=== PATIENT | female | born 2000 | race Caucasian/White ===

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

== ENCOUNTER 2021-01-21 11:47 | Emergency (ER) | payer MEDICAID ==
[2021-01-21 12:07] VITALS: BP 124/73; PULSE 83
[2021-01-21] MEDS ORDERED: Metoclopramide 10 MG Tab PO ONE (12:11)
--- NOTE | 2021-01-21 12:23 | EDM.PDOC ---
ED HPI GENERAL MEDICAL PROBLEM - General Chief Complaint: Gastrointestinal Problem Stated Complaint: VOMITTING/9 WEEKS PREG. Time Seen by Provider: 01/21/21 12:00 Source of Information: Reports: Patient History Limitations: Reports: No Limitations - History of Present Illness INITIAL COMMENTS - FREE TEXT/NARRATIVE: 20-year-old female, currently 9 weeks gestation with her third has had a lot of nausea and vomiting over the past 3 days. No significant diarrhea, no fevers or chills, some mild abdominal cramping but no significant pain. She is already on Zofran and vitamin B for nausea, she has tried that over the last 48 hours and its "not working". She has not taken any medication today however and has not vomited today and it is now 12 noon. Vitals are stable. Apparently she did not have this much nausea and vomiting with her previous pregnancies. Onset: Unknown/Unsure Duration: Day(s): (Symptoms have been going on for at least 3 days) Associated Symptoms: Reports: Loss of Appetite, Malaise. 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 Denies: Fever, Chills Respiratory: Denies: Shortness of Breath Cardiovascular: Denies: Chest Pain GI/Abdominal: Reports: Abdominal Pain (Mild abdominal cramps), Nausea, Vomiting. Denies: Diarrhea Skin: Reports: No Symptoms Neurological: Reports: Dizziness. Denies: Headache Psychiatric: Reports: No Symptoms ED EXAM - Physical Exam Exam: See Below Exam Limited By: No Limitations General Appearance: Alert, No Apparent Distress Eye Exam: Bilateral Eye: Normal Inspection (Good hydration, no jaundice.) Head: Atraumatic Respiratory/Chest: No Respiratory Distress, Lungs Clear Cardiovascular: Regular Rate, Rhythm. No: Tachycardia GI/Abdominal Exam: Normal Bowel Sounds, Soft, Tender (Mild discomfort with palpation diffusely but no focal tenderness) Extremities: Normal Inspection Neurological: Alert, Oriented Psychiatric: Normal Affect, Normal Mood Skin Exam: Warm, Dry Course - Vital Signs Last Recorded V/S: Last Vital Signs Temp 97.3 F 01/21/21 12:06 Pulse 83 01/21/21 12:06 Resp 14 01/21/21 12:06 BP 124/73 01/21/21 12:06 Pulse Ox 99 01/21/21 12:06 - Orders/Labs/Meds Labs: Laboratory Tests 01/21/21 01/21/21 Range/Units 12:22 12:22 WBC 10.1 (4.5-11.0) K/uL RBC 4.70 (3.30-5.50) M/uL Hgb 14.0 (12.0-15.0) g/dL Hct 42.0 (36.0-48.0) % MCV 89 (80-98) fL MCH 30 (27-31) pg MCHC 33 (32-36) % Plt Count 254 (150-400) K/uL Neut % (Auto) 80 H (36-66) % Lymph % (Auto) 13 L (24-44) % [place] % (Auto) 7 H (2-6) % Eos % (Auto) 1 L (2-4) % Baso % (Auto) 0 (0-1) % Sodium 144 (140-148) mmol/L Potassium 4.0 (3.6-5.2) mmol/L Chloride 103 (100-108) mmol/L Carbon Dioxide 23 (21-32) mmol/L Anion Gap 18.4 H (5.0-14.0) mmol/L BUN 9 (7-18) mg/dL Creatinine 0.6 (0.6-1.0) mg/dL Est Cr Clr Drug Dosing 107.43 mL/min Estimated GFR (MDRD) > 60 (>60) Glucose 73 L (74-106) mg/dL Calcium 9.3 (8.5-10.1) mg/dL Meds: Medications Discontinued Medications Generic Name Dose Route Start Last Admin Trade Name Airam PRN Reason Stop Dose Admin Metoclopramide HCl 10 mg 01/21/21 12:11 01/21/21 12:30 Metoclopramide 10 Mg Tab PO 01/21/21 12:12 10 mg ONETIME ONE Administration - Re-Assessments/Exams Free Text/Narrative Re-Assessment/Exam: 01/21/21 13:14 Patient took 1 10 mg Reglan dose and had no emesis or significant symptoms for the next hour. She was given a prescription for 12 additional doses to take 1 up to twice daily, and can recheck with her primary provider in the next week to discuss the effect of the medication. She can also continue Zofran as needed, and should concentrate on staying hydrated. Otherwise recheck on the as scheduled for her ultrasound. 01/21/21 14:46 I did try to find heart tones with the Doppler but was unsuccessful, she will follow up with her ultrasound appointment on the as scheduled as long as she is not developing any other symptoms Departure - Departure Time of Disposition: 13:23 Disposition: Home, Self-Care 01 Clinical Impression: Nausea and vomiting during - Discharge Information Instructions: Nausea and Vomiting, Adult Referrals: Karen Mckeon CNM [Primary Care Provider] - Forms: ED Department Discharge Care Plan Goals: Focus on staying hydrated with frequent but small amounts of water or fluid, use Reglan up to twice daily to quiet down your nausea and vomiting and you can continue using Zofran as well if needed. Call your regular doctor this week if not improving satisfactorily, or return to the emergency room if worsening or concerns. Sepsis Event Note (ED) - Evaluation Sepsis Screening Result: No Definite Risk - Focused Exam Vital Signs: Vital Signs Temp Pulse Resp BP Pulse Ox 01/21/21 12:06 97.3 F 83 14 124/73 99
== END 2021-01-21 13:23 | disposition home or self-care (01) ==
LOC: JP.ED 11:47
DX: O21.9 Vomiting of pregnancy, unspecified (principal); Z3A.09 9 weeks gestation of pregnancy
CPT/HCPCS: 36415; 80048; 85025; 99284; A9270; 99283

== ENCOUNTER 2021-08-26 07:32 | Inpatient (IN) | payer MEDICAID ==
[2021-08-26] MEDS ORDERED: Sodium Chloride 0.9% 10 ML Syringe FLUSH PRN ×2 (08:42→09:37)
--- NOTE | 2021-08-26 08:50 | PCM.LDHP ---
L&D History of Present Illness - General Date of Service: 08/26/21 (labor at term) Admit Problem/Dx: Patient Status Order with Admit Dx/Problem 08/26/21 08:42 Patient Status [ADT] Routine Admission Diagnosis/Problem Admission Diagnosis/Problem Source of Information: Patient History Limitations: Reports: No Limitations - History of Present Illness Introduction:: This 21 year old presented this morning with contractions which started at 0530 am. She woke up went to the bathroom and contractions started right after. I saw her yesterday in the clinic and stripped her membranes she was 3/90/0. RN tell me she is 5 cm this morning. Has had adequate care. reactive NST this morning with baseline FHT 150 with moderate variability Labs: GBS neg ABO O pos Rubella immune HIV neg Timing/Duration: Reports: minutes: (2) Location, : Reports: Abdomen Quality: Reports: Pressure, Sharp Severity: Severe Improves with: Reports: None Worsens with: Reports: None - Related Data Allergies/Adverse Reactions: Allergies Allergy/AdvReac Type Severity Reaction Status Date / Time No Known Allergies Allergy Verified 01/21/21 11:58 Home Medications: Home Meds Vit 40/Iron/Folic/Dha [ Multivitamin-Dha Sfgl] 1 tab PO DAILY 01/21/21 [History] Past Medical History - Past Health History Medical/Surgical History: Denies 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 (Approximate): (JANIE 08/30/21) - Past Surgical History Head Surgeries/Procedures: Reports: None Dermatological Surgical History: Reports: None Social & Family History - Family History Family Medical History: No Pertinent Family History - Caffeine Use Caffeine Use: Reports: None Other Caffeine Use: rarely pop and coffee H&P Review of Systems - Review of Systems: Review Of Systems: See Below General: Reports: No Symptoms HEENT: Reports: No Symptoms Pulmonary: Reports: No Symptoms Cardiovascular: Reports: No Symptoms Gastrointestinal: Reports: No Symptoms Genitourinary: Reports: No Symptoms Musculoskeletal: Reports: No Symptoms Skin: Reports: No Symptoms Psychiatric: Reports: No Symptoms Neurological: Reports: No Symptoms Hematologic/Lymphatic: Reports: No Symptoms Immunologic: Reports: No Symptoms L&D Exam - Exam Exam: See Below - Vital Signs Vital Signs: Last Vital Signs Temp Pulse 102 H 08/26/21 08:33 Resp BP 128/84 08/26/21 07:49 Pulse Ox 97 08/26/21 08:33 Weight: 160 lb - OB Specific Contraction Duration (sec): 60-90 Contraction Frequency (min): 2-4 Contraction Intensity: Moderate to Strong Movement: Active Heart Tones: Present Heart Rate (FHR) Variability: Moderate (6-25 bpm) Presentation: Vertex Estimated Weight: 6 pounds - Gonsalez Score Gonsalez Score Cervix Position: Anterior Gonsalez Score Consistency: Soft Gonsalez Score Effacement: >80% Gonsalez Score Dilation: > 5 cm Gonsalez Score Infant's Station: -1 ,0 Gonsalez Score Total: 12 - Exam General: Alert, Oriented HEENT: PERRLA, Mucosa Moist & [place] Neck: Supple Lungs: Normal Respiratory Effort Cardiovascular: Regular Rate, Regular Rhythm GI/Abdominal Exam: Normal Bowel Sounds Genitourinary: Cervical dilitation, Enlarged uterus Back Exam: Full Range of Motion Extremities: No Pedal Edema, Normal Capillary Refill Skin: Warm Neurological: Cranial Nerves Intact Psychiatric: Alert, Normal Affect, Normal Mood - Patient Data Lab Results Last 24 hrs: Laboratory Results - last 24 hr 08/26/21 08/26/21 Range/Units 07:47 08:20 WBC 13.9 H (4.5-11.0) K/uL RBC 4.40 (3.30-5.50) M/uL Hgb 13.1 (12.0-15.0) g/dL Hct 39.4 (36.0-48.0) % MCV 90 (80-98) fL MCH 30 (27-31) pg MCHC 33 (32-36) % Plt Count 197 (150-400) K/uL Neut % (Auto) 76.5 H (36-66) % Lymph % (Auto) 13.7 L (24-44) % [place] % (Auto) 8.8 H (2-6) % Eos % (Auto) 0.8 L (2-4) % Baso % (Auto) 0.2 (0-1) % Urine Color Yellow (YELLOW) Urine Appearance Clear (CLEAR) Urine pH 7.0 (5.0-8.0) Ur Specific [place] 1.025 (1.008-1.030) Urine Protein Negative (NEGATIVE) mg/dL Urine Glucose (UA) Negative (NEGATIVE) mg/dL Urine Ketones Negative (NEGATIVE) mg/dL Urine Occult Blood Trace-intact H (NEGATIVE) Urine Nitrite Negative (NEGATIVE) Urine Bilirubin Negative (NEGATIVE) Urine Urobilinogen 0.2 (0.2-1.0) EU/dL Ur Leukocyte Esterase Small H (NEGATIVE) Urine RBC 0-5 (0-5) Urine WBC 10-20 H (0-5) Ur Epithelial Cells Many Amorphous Sediment Not seen Urine Bacteria Rare Urine Mucus Few Result Diagrams: 08/26/21 08:20 - Problem List (1) Active labor at term SNOMED Code(s): 37936033 ICD Code: [id number] - Status: Acute Current Visit: Yes Problem List Initiated/Reviewed/Updated: Yes Orders Last 24hrs: Active Orders 24 hr Category Date Time Status Patient Status [ADT] Routine ADT 08/26/21 08:42 Ordered Antiembolic Devices [RC] .Routine Care 08/26/21 08:43 Ordered Communication Order [RC] ASDIRECTED Care 08/26/21 08:42 Ordered Heart Tones [RC] PER UNIT ROUTINE Care 08/26/21 08:42 Ordered Non Stress Test [RC] Click to Edit Care 08/26/21 08:42 Ordered Notify Provider Vital Signs [RC] PRN Care 08/26/21 08:42 Ordered Notify Provider [RC] PRN Care 08/26/21 08:42 Ordered VTE/DVT Education [RC] Click to Edit Care 08/26/21 08:43 Ordered Vital Signs [RC] PER UNIT ROUTINE Care 08/26/21 08:42 Ordered Regular Diet [DIET] Diet 08/26/21 Lunch Ordered COVID-19/FLU A+B/RSV [MOLEC] Routine Lab 08/26/21 08:31 Received DRUG SCREEN, URINE [URCHEM] Routine Lab 08/26/21 08:24 Ordered Lactated Ringers [Ringers, Lactated] 1,000 ml Med 08/26/21 10:00 Active IV ASDIRECTED Lactated Ringers [Ringers, Lactated] 1,000 ml Med 08/26/21 09:00 Active IV BOLUS Oxytocin/Normal Saline [Pitocin in NS 20 Units/1,000 ML Med 08/26/21 08:44 Ordered ] 20 unit in 1,000 ml IV ONETIME Vit with Ca/FA/Iron [ Plus Iron] Med 08/26/21 09:00 Active 1 each PO DAILY Sodium Chloride 0.9% [Saline Flush] Med 08/26/21 08:42 Ordered 10 ml FLUSH ASDIRECTED PRN DVT/VTE Prophylaxis Reflex [OM.PC] Routine Oth 08/26/21 08:42 Ordered Saline Lock Insert [OM.PC] Routine Oth 08/26/21 08:42 Ordered Resuscitation Status Routine Resus Stat 08/26/21 08:42 Ordered Medication Orders Lactated Ringer's (Ringers, Lactated) 1,000 mls @ 999 mls/hr IV BOLUS ONE Stop: 08/26/21 10:00 Lactated Ringer's (Ringers, Lactated) 1,000 mls @ 125 mls/hr IV ASDIRECTED REJI Prenat Multivit/[place]/Iron/Folic Ac ( Multivitamin With Calcium/Folic Acid/Iron Tab) 1 each PO DAILY REJI Assessment/Plan Comment:: 08/26/21 39 3/7 week IUP with active labor reactive NST Plan epidural for pain management plan for vaginal delivery
[2021-08-26] MEDS ORDERED: Lactated Ringers 1,000 ML IV ONE (09:00)
[2021-08-26 09:14] LABS: CORONAVIRUS COVID-19 NAA NEGATIVE (NEGATIVE)
[2021-08-26] MEDS ORDERED: diphenhydrAMINE 50 MG/ML SDV IVPUSH PRN ×2 (09:37)
[2021-08-26] MEDS ORDERED: Naloxone 0.4 MG/ML SDV IVPUSH PRN (09:37)
[2021-08-26] MEDS ORDERED: ePHEDrine 50 MG/ML SDV IVPUSH PRN (09:37)
[2021-08-26] MEDS ORDERED: Ropivacaine 200 MG in Premix Bag 1 BAG EPIDUR SCH (09:45)
[2021-08-26] MEDS ORDERED: Ropivacaine 100 ML ONE (09:52)
[2021-08-26] MEDS ORDERED: Lactated Ringers 1,000 ML IV SCH (10:00)
--- NOTE | 2021-08-26 10:00 | PCM.PNLD ---
Labor Progress Note - VS & Meds Vital Signs: Last Vital Signs Temp Pulse 102 H 08/26/21 08:33 Resp BP 128/84 08/26/21 07:49 Pulse Ox 97 08/26/21 08:33 Active Medications: Current Medications Diphenhydramine HCl (Diphenhydramine 50 Mg/Ml Sdv) 25 mg IVPUSH Q6H PRN PRN Reason: Itching Diphenhydramine HCl (Diphenhydramine 50 Mg/Ml Sdv) 50 mg IVPUSH Q6H PRN PRN Reason: Itching Ephedrine Sulfate (Ephedrine 50 Mg/Ml Sdv) 10 mg IVPUSH ASDIRECTED PRN PRN Reason: Hypotension Lactated Ringer's (Ringers, Lactated) 1,000 mls @ 999 mls/hr IV BOLUS ONE Stop: 08/26/21 10:00 Last Admin: 08/26/21 09:52 Dose: 999 mls/hr Documented by: Lactated Ringer's (Ringers, Lactated) 1,000 mls @ 125 mls/hr IV ASDIRECTED REJI Last Admin: 08/26/21 09:53 Dose: 125 mls/hr Documented by: Oxytocin/Sodium Chloride (Pitocin In Ns 20 Units/1,000 Ml) 20 unit in 1,000 mls @ 999 mls/hr IV ONETIME ONE; Protocol Stop: 08/26/21 10:45 Last Admin: 08/26/21 09:54 Dose: 999 mls/hr, 999 mls/hr Documented by: Ropivacaine 200 mg/ Premix 100 mls @ 0 mls/hr EPIDUR ASDIRECTED REJI Naloxone HCl (Naloxone 0.4 Mg/Ml Sdv) 0.1 mg IVPUSH ASDIRECTED PRN PRN Reason: Oversedation Prenat Multivit/Acetylene Torch Operator/Iron/Folic Ac ( Multivitamin With Calcium/Folic Acid/Iron Tab) 1 each PO DAILY REJI Sodium Chloride (Sodium Chloride 0.9% 10 Ml Syringe) 10 ml FLUSH ASDIRECTED PRN PRN Reason: Keep Vein Open Sodium Chloride (Sodium Chloride 0.9% 10 Ml Syringe) 10 ml FLUSH ASDIRECTED PRN PRN Reason: Keep Vein Open Discontinued Medications Ropivacaine (Naropin 0.2%) Confirm Administered Dose 100 mls @ as directed .ROUTE .STK-MED ONE Stop: 08/26/21 09:53 - Uterine Contractions Uterine Monitoring Mode: External Noank Contraction Frequency (min): 2-4 Contraction Duration (sec): 60-90 Contraction Intensity: Moderate to Strong Uterine Resting Tone: Soft - Monitoring Monitor Mode: External Ultrasound Heart Rate (FHR) Baseline: 140 Heart Rate (FHR) Variability: Moderate (6-25 bpm) Accelerations: Present, 15x15 Decelerations: None Strip Review: Category I - Vaginal Exam Dilation (cm): 6 Effacement (Percent): 90 Station: 0 Cervical Position: Anterior Sterile Vaginal Exam Performed By: Zoë Pablo Vaginal Exam Comment: bulging bag - Labor Progress (Free Text) Labor Progress: epidural placed Will AROM after placement of brown cath more comfortable now Plan for vaginal delivery
[2021-08-26] MEDS: Prenatal Multivitamin with Calcium/Folic Acid/Iron Tab PO SCH (10:05)
[2021-08-26] MEDS ORDERED: Lanolin 100% Cream 40 GM Tube TOP PRN (12:54)
[2021-08-26] MEDS ORDERED: Benzocaine 20% Top Spray 56 GM Bottle TOP PRN (12:54)
[2021-08-26] MEDS ORDERED: Hydrocortisone 2.5% Crm 30 GM Tube TOP PRN (12:54)
[2021-08-26] MEDS ORDERED: Ibuprofen 200 MG Tab, 24 Tab Bulk Bottle PO PRN (12:54)
[2021-08-26] MEDS ORDERED: Witch Hazel Medicated Pads 100/Jar TOP PRN (12:54)
[2021-08-26] MEDS ORDERED: Acetaminophen 325 MG Tab, 50 Tab Bulk Bottle PO PRN (12:54)
--- NOTE | 2021-08-26 13:04 | PCM.DEL ---
L & D Note - General Info Date of Service: 08/26/21 (childbirth) Mother's Due Date: 08/30/21 - Delivery Note Labor: Spontaneous Delivery Outcome: Livebirth Infant Delivery Method: Spontaneous Vaginal Delivery-Single Delivery Mode: Spontaneous Presentation: Left Occiput Posterior (LOP) Nuchal Cord: None Anesthesia Type: Epidural Amniotic Fluid Description: Clear Episiotomy Type: None Laceration: None Placenta: Intact, Spontaneous Cord: 3 Vessels Estimated Blood Loss: 100 Resuscitation Needed: No : Bulb Syringe, Stimulated, Warmed, [place] Used Provider: Zoë Pablo Score 1 min: 8 (color) Score 5 min: 9 (color) Second Stage Interventions: Reports: Second Nurse Reviewed Heart Tones, Pushing Effectively, Pushing, McRobert's Position Delivery Comments (Free Text/Narrative):: This 21 year old G3 now P3 who is 39 3/7 weeks delivered via a viable female at 1233 over and intact perineum in LOP position. The was placed on mother's chest where she was dried and stimulated. She cried spontaneously. Apgars 8 and 9 all for color. Delayed cord clamping and active management of the third stage. Three vessel cord. The placenta was expressed spontaneously intact, verito. No lacerations of the cervix, vagina, perineum or rectum were found. EBL 100cc weight 7-14 Mother and baby to post in stable condition. breast within 30 minutes of . First stage 5690-8554 Second stage 2664-2006 Third stage 6304-4070 - General Info Date of Service: 08/26/21 Admission Dx/Problem (Free Text): Patient Status Order with Admit Dx/Problem 08/26/21 08:42 Patient Status [ADT] Routine Admission Diagnosis/Problem Admission Diagnosis/Problem Functional Status: Reports: Pain Controlled - Review of Systems General: Reports: No Symptoms HEENT: Reports: No Symptoms Pulmonary: Reports: No Symptoms Cardiovascular: Reports: No Symptoms Gastrointestinal: Reports: No Symptoms Genitourinary: Reports: No Symptoms Musculoskeletal: Reports: No Symptoms Skin: Reports: No Symptoms Neurological: Reports: No Symptoms Psychiatric: Reports: No Symptoms - Patient Data Vitals - Most Recent: Last Vital Signs Temp Pulse 102 H 08/26/21 08:33 Resp BP 128/84 08/26/21 07:49 Pulse Ox 97 08/26/21 09:37 Weight - Most Recent: 165 lb Lab Results Last 24 Hours: Laboratory Results - last 24 hr 08/26/21 08/26/21 08/26/21 Range/Units 07:47 08:20 08:24 WBC 13.9 H (4.5-11.0) K/uL RBC 4.40 (3.30-5.50) M/uL Hgb 13.1 (12.0-15.0) g/dL Hct 39.4 (36.0-48.0) % MCV 90 (80-98) fL MCH 30 (27-31) pg MCHC 33 (32-36) % Plt Count 197 (150-400) K/uL Neut % (Auto) 76.5 H (36-66) % Lymph % (Auto) 13.7 L (24-44) % [place] % (Auto) 8.8 H (2-6) % Eos % (Auto) 0.8 L (2-4) % Baso % (Auto) 0.2 (0-1) % Urine Color Yellow (YELLOW) Urine Appearance Clear (CLEAR) Urine pH 7.0 (5.0-8.0) Ur Specific [place] 1.025 (1.008-1.030) Urine Protein Negative (NEGATIVE) mg/dL Urine Glucose (UA) Negative (NEGATIVE) mg/dL Urine Ketones Negative (NEGATIVE) mg/dL Urine Occult Blood Trace-intact H (NEGATIVE) Urine Nitrite Negative (NEGATIVE) Urine Bilirubin Negative (NEGATIVE) Urine Urobilinogen 0.2 (0.2-1.0) EU/dL Ur Leukocyte Esterase Small H (NEGATIVE) Urine RBC 0-5 (0-5) Urine WBC 10-20 H (0-5) Ur Epithelial Cells Many Amorphous Sediment Not seen Urine Bacteria Rare Urine Mucus Few Urine Opiates Screen Negative (NEGATIVE) Ur Oxycodone Screen Negative (NEGATIVE) Urine Methadone Screen Negative (NEGATIVE) Ur Propoxyphene Screen Negative (NEGATIVE) Ur Barbiturates Screen Negative (NEGATIVE) Ur Tricyclics Screen Negative (NEGATIVE) Ur Phencyclidine Scrn Negative (NEGATIVE) Ur Amphetamine Screen Negative (NEGATIVE) U Methamphetamines Scrn Negative (NEGATIVE) Urine MDMA Screen Negative (NEGATIVE) U Benzodiazepines Scrn Negative (NEGATIVE) U Cocaine Metab Screen Negative (NEGATIVE) U Marijuana (THC) Screen Negative (NEGATIVE) Influenza Type A RNA (NEGATIVE) RSV RNA (INAAT) (NEGATIVE) Influenza Type B RNA (NEGATIVE) SARS-CoV-2 RNA (SHREYA) (NEGATIVE) 08/26/21 Range/Units 08:31 WBC (4.5-11.0) K/uL RBC (3.30-5.50) M/uL Hgb (12.0-15.0) g/dL Hct (36.0-48.0) % MCV (80-98) fL MCH (27-31) pg MCHC (32-36) % Plt Count (150-400) K/uL Neut % (Auto) (36-66) % Lymph % (Auto) (24-44) % [place] % (Auto) (2-6) % Eos % (Auto) (2-4) % Baso % (Auto) (0-1) % Urine Color (YELLOW) Urine Appearance (CLEAR) Urine pH (5.0-8.0) Ur Specific [place] (1.008-1.030) Urine Protein (NEGATIVE) mg/dL Urine Glucose (UA) (NEGATIVE) mg/dL Urine Ketones (NEGATIVE) mg/dL Urine Occult Blood (NEGATIVE) Urine Nitrite (NEGATIVE) Urine Bilirubin (NEGATIVE) Urine Urobilinogen (0.2-1.0) EU/dL Ur Leukocyte Esterase (NEGATIVE) Urine RBC (0-5) Urine WBC (0-5) Ur Epithelial Cells Amorphous Sediment Urine Bacteria Urine Mucus Urine Opiates Screen (NEGATIVE) Ur Oxycodone Screen (NEGATIVE) Urine Methadone Screen (NEGATIVE) Ur Propoxyphene Screen (NEGATIVE) Ur Barbiturates Screen (NEGATIVE) Ur Tricyclics Screen (NEGATIVE) Ur Phencyclidine Scrn (NEGATIVE) Ur Amphetamine Screen (NEGATIVE) U Methamphetamines Scrn (NEGATIVE) Urine MDMA Screen (NEGATIVE) U Benzodiazepines Scrn (NEGATIVE) U Cocaine Metab Screen (NEGATIVE) U Marijuana (THC) Screen (NEGATIVE) Influenza Type A RNA Negative (NEGATIVE) RSV RNA (INAAT) Negative (NEGATIVE) Influenza Type B RNA Negative (NEGATIVE) SARS-CoV-2 RNA (SHREYA) Negative (NEGATIVE) Med Orders - Current: Current Medications Diphenhydramine HCl (Diphenhydramine 50 Mg/Ml Sdv) 25 mg IVPUSH Q6H PRN PRN Reason: Itching Diphenhydramine HCl (Diphenhydramine 50 Mg/Ml Sdv) 50 mg IVPUSH Q6H PRN PRN Reason: Itching Ephedrine Sulfate (Ephedrine 50 Mg/Ml Sdv) 10 mg IVPUSH ASDIRECTED PRN PRN Reason: Hypotension Last Admin: 08/26/21 10:39 Dose: 10 mg Documented by: Lactated Ringer's (Ringers, Lactated) 1,000 mls @ 125 mls/hr IV ASDIRECTED REJI Last Admin: 08/26/21 09:53 Dose: 125 mls/hr Documented by: Ropivacaine 200 mg/ Premix 100 mls @ 0 mls/hr EPIDUR ASDIRECTED REJI Naloxone HCl (Naloxone 0.4 Mg/Ml Sdv) 0.1 mg IVPUSH ASDIRECTED PRN PRN Reason: Oversedation Prenat Multivit/[place]/Iron/Folic Ac ( Multivitamin With Calcium/Folic Acid/Iron Tab) 1 each PO DAILY [facility] Last Admin: 08/26/21 10:05 Dose: 1 each Documented by: Sodium Chloride (Sodium Chloride 0.9% 10 Ml Syringe) 10 ml FLUSH ASDIRECTED PRN PRN Reason: Keep Vein Open Sodium Chloride (Sodium Chloride 0.9% 10 Ml Syringe) 10 ml FLUSH ASDIRECTED PRN PRN Reason: Keep Vein Open Discontinued Medications Lactated Ringer's (Ringers, Lactated) 1,000 mls @ 999 mls/hr IV BOLUS ONE Stop: 08/26/21 10:00 Last Admin: 08/26/21 09:52 Dose: 999 mls/hr Documented by: Oxytocin/Sodium Chloride (Pitocin In Ns 20 Units/1,000 Ml) 20 unit in 1,000 mls @ 999 mls/hr IV ONETIME ONE; Protocol Stop: 08/26/21 10:45 Last Admin: 08/26/21 09:54 Dose: 999 mls/hr, 999 mls/hr Documented by: Ropivacaine (Naropin 0.2%) Confirm Administered Dose 100 mls @ as directed .ROUTE .[facility] ONE Stop: 08/26/21 09:53 - Exam General: Alert, Oriented HEENT: Pupils Equal Neck: Supple Lungs: Normal Respiratory Effort Cardiovascular: Regular Rate GI/Abdominal Exam: Soft, Non-Tender (Female) Exam: Normal External Exam, Enlarged Uterus, Vaginal Bleeding Back Exam: Full Range of Motion Extremities: No Pedal Edema, Normal Capillary Refill Skin: Warm Neurological: No New Focal Deficit Psy/Mental Status: Alert, Normal Affect, Normal Mood - Problem List & Annotations (1) Active labor at term SNOMED Code(s): 52884923 Code(s): EOA6293 - Status: Acute Current Visit: Yes (2) (infant) SNOMED Code(s): 256641458 Code(s): Z78.9 - OTHER SPECIFIED HEALTH STATUS Status: Acute Current Visit: Yes (3) Vaginal delivery SNOMED Code(s): 627506442 Code(s): O80 - ENCOUNTER FOR FULL-TERM UNCOMPLICATED DELIVERY Status: Acute Current Visit: Yes - Problem List Review Problem List Initiated/Reviewed/Updated: Yes - My Orders Last 24 Hours: My Active Orders 08/26/21 08:42 Communication Order [RC] ASDIRECTED Non Stress Test [RC] Click to Edit Notify Provider Vital Signs [RC] PRN Notify Provider [RC] PRN Vital Signs [RC] PER UNIT ROUTINE Sodium Chloride 0.9% [Saline Flush] 10 ml FLUSH ASDIRECTED PRN DVT/VTE Prophylaxis Reflex [OM.PC] Routine Saline Lock Insert [OM.PC] Routine Resuscitation Status Routine 08/26/21 08:43 Antiembolic Devices [RC] .Routine VTE/DVT Education [RC] Click to Edit 08/26/21 09:00 Vit with Ca/FA/Iron [ Plus Iron] 1 each PO DAILY 08/26/21 09:37 Communication Order [RC] ROUTINE Communication Order [RC] ROUTINE Communication Order [RC] ROUTINE Oxygen Therapy [RC] ASDIRECTED PCEA Epidural [RC] ASDIRECTED Peripheral IV Care [RC] . DIRECTED Pulse Oximetry [RC] ASDIRECTED Vital Signs [RC] PER UNIT ROUTINE Naloxone [Narcan] 0.1 mg IVPUSH ASDIRECTED PRN Sodium Chloride 0.9% [Saline Flush] 10 ml FLUSH ASDIRECTED PRN diphenhydrAMINE [Benadryl] 25 mg IVPUSH Q6H PRN diphenhydrAMINE [Benadryl] 50 mg IVPUSH Q6H PRN ePHEDrine [ePHEDrine sulfate] 10 mg IVPUSH ASDIRECTED PRN Epidural Catheter Management [OM.PC] Routine Peripheral IV Insertion Pediatric [OM.PC] Routine 08/26/21 09:45 Ropivacaine [Naropin 0.2%] 200 mg Premix Bag 1 bag EPIDUR ASDIRECTED 08/26/21 10:00 Lactated Ringers [Ringers, Lactated] 1,000 ml IV ASDIRECTED 08/26/21 Lunch Regular Diet [DIET] 08/26/21 12:54 Patient Status [ADT] Routine May Shower [RC] ASDIRECTED Vital Signs [RC] PFP Acetaminophen [Tylenol Bulk Bottle] See Dose Instructions PO Q4H PRN Benzocaine [[id number] 20% [place]] See Dose Instructions TOP Q4H ONE Hydrocortisone [Proctozone-HC 2.5% Crm] 1 gm TOP ASDIRECTED PRN Ibuprofen [Motrin Bulk Bottle] 600 mg PO Q6H PRN Lanolin [Lansinoh HPA] 1 gm TOP ASDIRECTED ONE witch Dennis [Tucks] 1 pad TOP ASDIRECTED ONE Assess Lochia [WOMSER] Per Unit Routine 08/26/21 12:55 Peripheral IV Discontinue [OM.PC] Routine - Assessment Assessment:: 08/26/21 21 year old G3 now P3 39 3/7 weeks, without complications female infant, - Plan Plan:: 08/26/21 39 3/7 week IUP with active labor reactive NST Plan epidural for pain management plan for vaginal delivery 08/26/21 Routine cares support 24-48 hour stay
[2021-08-27 07:38] VITALS: BP 122/79; PULSE 85
--- NOTE | 2021-08-27 10:19 | PCM.PNPP ---
- General Info Date of Service: 08/27/21 (PDD 1 D/C) Admission Dx/Problem (Free Text): Patient Status Order with Admit Dx/Problem 08/26/21 08:42 Patient Status [ADT] Routine Admission Diagnosis/Problem Admission Diagnosis/Problem Functional Status: Reports: Pain Controlled - Review of Systems General: Reports: No Symptoms HEENT: Reports: No Symptoms Pulmonary: Reports: No Symptoms Cardiovascular: Reports: No Symptoms Gastrointestinal: Reports: No Symptoms Genitourinary: Reports: No Symptoms Musculoskeletal: Reports: No Symptoms Skin: Reports: No Symptoms Neurological: Reports: No Symptoms Psychiatric: Reports: No Symptoms - General Info Date of Service: 08/27/21 - Patient Data Vital Signs - Most Recent: Last Vital Signs Temp 97.8 F 08/27/21 07:35 Pulse 85 08/27/21 07:35 Resp 16 08/27/21 07:35 BP 122/79 08/27/21 07:35 Pulse Ox 97 08/27/21 07:35 Weight - Most Recent: 165 lb I&O - Last 24 Hours: Intake & Output 08/26/21 08/27/21 08/27/21 22:59 06:59 14:59 Intake Total 700 Balance 700 Med Orders - Current: Current Medications Acetaminophen (Acetaminophen 325 Mg Tab, 50 Tab Bulk Bottle) 325 - 650 mg PO Q4H PRN PRN Reason: Pain Last Admin: 08/26/21 13:56 Dose: 1 bottle Documented by: Benzocaine (Benzocaine 20% Top [place] 56 Gm Bottle) 0 gm TOP Q4H PRN PRN Reason: Pain Last Admin: 08/26/21 13:55 Dose: 1 bottle Documented by: Diphenhydramine HCl (Diphenhydramine 50 Mg/Ml Sdv) 25 mg IVPUSH Q6H PRN PRN Reason: Itching Diphenhydramine HCl (Diphenhydramine 50 Mg/Ml Sdv) 50 mg IVPUSH Q6H PRN PRN Reason: Itching Emollient Ointment (Lanolin 100% Cream 40 Gm Tube) 1 gm TOP ASDIRECTED PRN PRN Reason: SORE NIPPLES Last Admin: 08/26/21 13:54 Dose: 1 bottle Documented by: Ephedrine Sulfate (Ephedrine 50 Mg/Ml Sdv) 10 mg IVPUSH ASDIRECTED PRN PRN Reason: Hypotension Last Admin: 08/26/21 10:39 Dose: 10 mg Documented by: Hydrocortisone (Hydrocortisone 2.5% Crm 30 Gm Tube) 1 gm TOP ASDIRECTED PRN PRN Reason: Itching Last Admin: 08/26/21 13:54 Dose: 1 bottle Documented by: Lactated Ringer's (Ringers, Lactated) 1,000 mls @ 125 mls/hr IV ASDIRECTED REJI Last Admin: 08/26/21 09:53 Dose: 125 mls/hr Documented by: Ropivacaine 200 mg/ Premix 100 mls @ 0 mls/hr EPIDUR ASDIRECTED [facility] Ibuprofen (Ibuprofen 200 Mg Tab, 24 Tab Bulk Bottle) 600 mg PO Q6H PRN PRN Reason: Pain Last Admin: 08/26/21 13:55 Dose: 1 bottle Documented by: Naloxone HCl (Naloxone 0.4 Mg/Ml Sdv) 0.1 mg IVPUSH ASDIRECTED PRN PRN Reason: Oversedation Prenat Multivit/Hazard Mitigation Officer/Iron/Folic Ac ( Multivitamin With Calcium/Folic Acid/Iron Tab) 1 each PO DAILY [facility] Last Admin: 08/26/21 10:05 Dose: 1 each Documented by: Sodium Chloride (Sodium Chloride 0.9% 10 Ml Syringe) 10 ml FLUSH ASDIRECTED PRN PRN Reason: Keep Vein Open Sodium Chloride (Sodium Chloride 0.9% 10 Ml Syringe) 10 ml FLUSH ASDIRECTED PRN PRN Reason: Keep Vein Open Witch Dennis (Witch Dennis Medicated Pads 100/Jar) 1 pad TOP ASDIRECTED PRN PRN Reason: PERINEAL PAIN Last Admin: 08/26/21 13:54 Dose: 1 bottle Documented by: Discontinued Medications Lactated Ringer's (Ringers, Lactated) 1,000 mls @ 999 mls/hr IV BOLUS ONE Stop: 08/26/21 10:00 Last Admin: 08/26/21 09:52 Dose: 999 mls/hr Documented by: Oxytocin/Sodium Chloride (Pitocin In Ns 20 Units/1,000 Ml) 20 unit in 1,000 mls @ 999 mls/hr IV ONETIME ONE; Protocol Stop: 08/26/21 10:45 Last Admin: 08/26/21 09:54 Dose: 999 mls/hr, 999 mls/hr Documented by: Ropivacaine (Naropin 0.2%) Confirm Administered Dose 100 mls @ as directed .ROUTE .[facility] ONE Stop: 08/26/21 09:53 - Interaction Disposition, : in Room with Family Interaction: Holding Infant Feeding: Breastfed ; Nursed Well Support Person: Significant Other - Recovery Exam Fundal Tone: Firm Fundal Level: At Umbilicus Fundal Placement: Midline Lochia Amount: Small Lochia Color: Rubra/Red Perineum Description: Intact, Minimal Bruising/Swelling Episiotomy/Laceration: None Bladder Status: Voiding - Exam General: Alert, Oriented HEENT: Pupils Equal Neck: Supple Lungs: Clear to Auscultation, Normal Respiratory Effort Cardiovascular: Regular Rate GI/Abdominal Exam: Non-Tender Extremities: No Pedal Edema, Normal Capillary Refill Skin: Warm, Dry, Intact Wound/Incisions: Healing Well Neurological: No New Focal Deficit Psy/Mental Status: Alert, Normal Affect, Normal Mood - Problem List & Annotations (1) Active labor at term SNOMED Code(s): 81465856 Code(s): SAD4555 - Status: Acute Current Visit: Yes (2) (infant) SNOMED Code(s): 747375993 Code(s): Z78.9 - OTHER SPECIFIED HEALTH STATUS Status: Acute Current Visit: Yes (3) Vaginal delivery SNOMED Code(s): 102907359 Code(s): O80 - ENCOUNTER FOR FULL-TERM UNCOMPLICATED DELIVERY Status: Acute Current Visit: Yes - Problem List Review Problem List Initiated/Reviewed/Updated: Yes - My Orders Last 24 Hours: My Active Orders 08/26/21 09:37 Communication Order [RC] ROUTINE Communication Order [RC] ROUTINE Communication Order [RC] ROUTINE Oxygen Therapy [RC] ASDIRECTED PCEA Epidural [RC] ASDIRECTED Peripheral IV Care [RC] . DIRECTED Pulse Oximetry [RC] ASDIRECTED Naloxone [Narcan] 0.1 mg IVPUSH ASDIRECTED PRN Sodium Chloride 0.9% [Saline Flush] 10 ml FLUSH ASDIRECTED PRN diphenhydrAMINE [Benadryl] 25 mg IVPUSH Q6H PRN diphenhydrAMINE [Benadryl] 50 mg IVPUSH Q6H PRN ePHEDrine [ePHEDrine sulfate] 10 mg IVPUSH ASDIRECTED PRN Epidural Catheter Management [OM.PC] Routine Peripheral IV Insertion Pediatric [OM.PC] Routine 08/26/21 09:45 Ropivacaine [Naropin 0.2%] 200 mg Premix Bag 1 bag EPIDUR ASDIRECTED 08/26/21 10:00 Lactated Ringers [Ringers, Lactated] 1,000 ml IV ASDIRECTED 08/26/21 Lunch Regular Diet [DIET] 08/26/21 12:54 Patient Status [ADT] Routine May Shower [RC] ASDIRECTED Vital Signs [RC] PFP Acetaminophen [Tylenol Bulk Bottle] 325 - 650 mg PO Q4H PRN Benzocaine [[id number] 20% [place]] See Dose Instructions TOP Q4H PRN Hydrocortisone [Proctozone-HC 2.5% Crm] 1 gm TOP ASDIRECTED PRN Ibuprofen [Motrin Bulk Bottle] 600 mg PO Q6H PRN Lanolin [Lansinoh HPA] 1 gm TOP ASDIRECTED PRN witch Dennis [Tucks] 1 pad TOP ASDIRECTED PRN Assess Lochia [WOMSER] Per Unit Routine 08/26/21 12:55 Peripheral IV Discontinue [OM.PC] Routine - Assessment Assessment:: 08/26/21 21 year old G3 now P3 39 3/7 weeks, without complications female , 08/27/21 Mood happy Breast, baby latching well and no problems voiding without difficult 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 Some cramping Using medications for hemorrhoids. wants to go home - Plan Plan:: 08/26/21 39 3/7 week IUP with active labor reactive NST Plan epidural for pain management plan for vaginal delivery 08/26/21 Routine cares support 24-48 hour stay 08/27/21 Ready for discharge see me in 6 weeks for post visit
[2021-08-27] MEDS: Prenatal Multivitamin with Calcium/Folic Acid/Iron Tab PO SCH (11:13)
--- NOTE | 2021-08-29 09:11 | ANES ---
DATE OF SERVICE: 08/26/2021 Labor Epidural Note I was called this morning by the Labor and Delivery for a young lady up there requesting a labor epidural in active labor. I was at the bedside at approximately 9:25 this morning. A brief history and physical was done with the patient. Platelet count was noted to be 197. The patient is healthy, is not currently on any blood thinners. Allergies were reviewed. Risks and benefits including risk for infection, risk for subarachnoid block, and intravascular injection of local anesthetic were discussed with the patient. The patient verbalizes understanding, wishes to proceed with the labor epidural at this time. The patient did have a baby 2 years ago with an epidural here where she did drop her pressures pretty significantly after the placement of the epidural, but bolus was almost all in today and I will keep a close eye on her blood pressure shortly after the bolus. The patient was sat at the edge of the bed. Betadine prep x3 to the lumbar region was done. Sterile drape was placed. 1% lidocaine skin wheal and deep was done. 17-gauge Tuohy needle was inserted at approximately the L3-4 position. Loss of resistance was easily achieved. Negative paresthesia, negative heme, negative CSF were noted. Loss of resistance was approximately 5 cm. Catheter was then easily threaded through the Touhy needle. Tuohy needle was then pulled back. Catheter was pulled back and secured at approximately 13.5 cm. A test dose was done at this time too. After catheter was fully secured and test dose was done, we laid the patient in supine position with left uterine displacement and head of bed slightly elevated. Several minutes after the test dose, the patient showed no sign of a subarachnoid block or intravascular injection of a local, so I then proceeded to give the patient a 12 mL bolus of 0.2% ropivacaine via the epidural and started her on a 0.2% ropivacaine drip at 12 mL an hour. The patient tolerated the bolus at this time without any difficulties. Blood pressures were stable. The patient was having some relief prior to leaving. Will be available as needed for the patient. Stuart Leblanc CRNA /[id number]
== END 2021-08-27 14:35 | disposition home or self-care (01) | DRG 807 ==
LOC: JP.OBCHECK 07:32 → JP.OB 07:36 → JP.OBCHECK 08:21 → JP.OB 08:22 → OBSVTOIN 12:33 → JP.MS 17:00
PROVIDERS: ADMIT Nurse Practitioner Family; ATTEND Nurse Practitioner Family
PROC: 10E0XZZ Delivery of Products of Conception, External Approach (ICD-10-PCS; principal; 2021-08-26)
PROC: 3E0R3BZ Introduction of Anesthetic Agent into Spinal Canal, Percutaneous Approach (ICD-10-PCS; 2021-08-26)
PROC: 00HU33Z Insertion of Infusion Device into Spinal Canal, Percutaneous Approach (ICD-10-PCS; 2021-08-26)
DX: O80 Encounter for full-term uncomplicated delivery (principal); Z37.0 Single live birth; Z3A.39 39 weeks gestation of pregnancy; Z20.822 Contact with and (suspected) exposure to COVID-19
CPT/HCPCS: 0241U; 36415; 51701; 80305-QW; 81001; 85025; 99211; A9270-GY; J2590; J2795; J7120

== ENCOUNTER 2021-09-22 00:35 | Emergency (ER) | payer MEDICAID ==
[2021-09-22 00:49] VITALS: BP 116/73; PULSE 76
--- NOTE | 2021-09-22 00:57 | EDM.PDOC ---
ED HPI GENERAL MEDICAL PROBLEM - General Chief Complaint: Skin Complaint Stated Complaint: HEMORRHOID ISSUE Time Seen by Provider: 09/22/21 00:37 Source of Information: Reports: Patient History Limitations: Reports: No Limitations - History of Present Illness INITIAL COMMENTS - FREE TEXT/NARRATIVE: Cely is a 21-year-old female presenting to the ED with concerns of possible bleeding hemorrhoid. Patient states that she developed hemorrhoids late in her and she recently delivered about 4 weeks ago. The patient reports that the hemorrhoidal bleeding started yesterday. It has not eased up at all prompting her to come in for evaluation. 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: - Past Surgical History Head Surgeries/Procedures: Reports: None Dermatological Surgical History: Reports: None Social & Family History - Family History Family Medical History: No Pertinent Family History - Caffeine Use Caffeine Use: Reports: Soda Other Caffeine Use: rarely pop and coffee ED ROS GENERAL - Review of Systems Review Of Systems: See Below : Reports: Other (Eating hemorrhoid, no significant rectal pain.) ED EXAM, SKIN/RASH Exam: See Below Exam Limited By: No Limitations General Appearance: Alert, Mild Distress Rectal (Female) Exam: Normal Rectal Tone, Hemorrhoids (Large thrombosed hemorrhoid at 9:00 on the rectum with clot measuring approximately 1 cm in diameter. Hemorrhoid is very inflamed.) ED SKIN PROCEDURES - I&D Site: Perirectal hemorrhoid Skin Prep: Providone-Iodine (Betadine) Local Anesthesia: Lidocaine: 1% with EPI Local Anesthetic Volume: 2cc Area Incised With: 11 Blade Drainage: Bloody (Clot was removed with direct compression over the thrombosed hemorrhoid after filling it open with an #11 scalpel.), Moderate Amount Complications: No Departure - Departure Time of Disposition: 01:03 Disposition: Home, Self-Care 01 Clinical Impression: Thrombosed external hemorrhoid - Discharge Information Instructions: Surgical Procedures for Hemorrhoids, Care After Care Plan Goals: We have removed the thrombus (clot) which should significantly reduce the amount of pain you have been experiencing. You will still want to do sitz baths from your thrombosed hemorrhoid at least once a day and after each bowel movement to keep the area clean. You also may use Tucks pads which can be soothing and cleansing as well. You do not need Epson salts to do a sitz bath just warm water. This hemorrhoid will heal over the course of the next 3 to 4 days. You may experience a little bit of bleeding from it. The evacuation of the clot from the hemorrhoid should significantly reduce the pain. I would recommend using a stool softener like Dulcolax for the next week just so you are not straining to have a bowel movement. Feel free to return if you have any concerns. Have a safe New Year and hopefully 2021 will be a much better year. - Problem List & Annotations (1) Thrombosed external hemorrhoid SNOMED Code(s): 64894573 Code(s): K64.5 - PERIANAL VENOUS THROMBOSIS Status: Acute Priority: Low Current Visit: Yes - Problem List Review Problem List Initiated/Reviewed/Updated: Yes
== END 2021-09-22 01:11 | disposition home or self-care (01) ==
LOC: JP.ED 00:35
DX: K64.5 Perianal venous thrombosis (principal); Z79.899 Other long term (current) drug therapy
CPT/HCPCS: 46040; 46083; 99282-25

== ENCOUNTER 2022-09-03 22:58 | Emergency (ER) | payer MEDICAID ==
[2022-09-03 23:20] VITALS: BP 121/88; PULSE 69
[2022-09-03] MEDS ORDERED: fentaNYL 100 MCG/2 ML SDV IM ONE (23:48)
[2022-09-03] MEDS ORDERED: Ondansetron 4 MG Tab.DIS PO ONE (23:48)
[2022-09-04 00:24] LABS: ESTIMATED GFR 130 mL/min (>60)
[2022-09-04] MEDS ORDERED: Ketorolac 30 MG/ML SDV IM ONE (00:30)
== END 2022-09-04 03:02 | disposition home or self-care (01) ==
LOC: JP.ED 22:58
DX: K81.9 Cholecystitis, unspecified (principal); F17.210 Nicotine dependence, cigarettes, uncomplicated; Z79.899 Other long term (current) drug therapy
CPT/HCPCS: 36415; 76705; 80053; 81001; 81025; 83605; 83690; 85025; 96372; 99284; J1885; Q0162

== ENCOUNTER 2022-09-10 08:03 | Day surgery (SDC) | payer MEDICAID ==
[~2022-09-10 08:03] MED LIST: Acetaminophen 500 MG Tab PO ONE; Bupivacaine 0.5%/EPINEPHrine 1:200,000 50 ML MDV ONE; Indocyanine Green 25 MG SDV INJECT ONE
[2022-09-10] MEDS ORDERED: Sodium Chloride 0.9% 1,000 ML IV SCH (08:15)
[2022-09-10] MEDS ORDERED: Neostigmine Methylsulfate 1 MG/ML 5 ML Syringe ONE (08:30)
[2022-09-10] MEDS ORDERED: Dexamethasone 4 MG/ML SDV ONE (08:30)
[2022-09-10] MEDS ORDERED: fentaNYL 250 MCG/5 ML SDV ONE (08:30)
[2022-09-10] MEDS ORDERED: Propofol 200 MG/20 ML SDV ONE (08:30)
[2022-09-10] MEDS ORDERED: Glycopyrrolate 0.2 MG/ML 5 ML MDV ONE (08:30)
[2022-09-10] MEDS ORDERED: Rocuronium 50 MG/5 ML Vial ONE (08:30)
[2022-09-10] MEDS ORDERED: Ondansetron 4 MG/2 ML SDV ONE (08:30)
[2022-09-10] MEDS ORDERED: Succinylcholine 200 MG/10 ML MDV ONE (08:30)
[2022-09-10] MEDS ORDERED: Scopolamine 1.5 MG Transdermal Patch TOP ONE (09:06)
[2022-09-10] MEDS ORDERED: metroNIDAZOLE/Normal Saline 500 MG in Premix Bag 1 BAG IV ONE (10:00)
[2022-09-10] MEDS ORDERED: cefTRIAXone 2 GM in Sodium Chloride 0.9% 50 ML IV ONE (10:00)
[2022-09-10] MEDS ORDERED: fentaNYL 100 MCG/2 ML SDV ONE (10:16)
[2022-09-10] MEDS ORDERED: Lactated Ringers 1,000 ML ONE (11:11)
[2022-09-10] MEDS ORDERED: fentaNYL 50 MCG/ML SDV IVPUSH ONE (11:38)
[2022-09-10] MEDS ORDERED: hydrOXYzine HCL 100 MG/2 ML SDV IM ONE (11:38)
[2022-09-10] MEDS ORDERED: oxyCODONE 5 MG Tab PO ONE (13:21)
[2022-09-10 14:16] VITALS: BP 123/81; PULSE 68
== END 2022-09-10 15:05 | disposition home or self-care (01) ==
LOC: JP.SDS 08:03
PROVIDERS: ATTEND Student in an Organized Health Care Education/Training Program
DX: K80.10 Calculus of gallbladder with chronic cholecystitis without obstruction (principal); E66.9 Obesity, unspecified; K21.9 Gastro-esophageal reflux disease without esophagitis; Z79.899 Other long term (current) drug therapy; Z91.040 Latex allergy status; Z68.26 Body mass index [BMI] 26.0-26.9, adult
CPT/HCPCS: 47562; 81025; 88304; A9270; J0696; J1100; J2405; J2704; J2710; J3010; J3410; J3490; J7030; J7120; J0330

== ENCOUNTER 2023-05-06 18:50 | Emergency (ER) | payer MEDICAID ==
[2023-05-06 19:30] VITALS: PULSE 61
[2023-05-06 19:38] VITALS: BP 120/65
[2023-05-06 20:50] LABS: BASOPHILS ABSOLUTE AUTO 0.04 K/uL (0.00-0.10); BASOPHILS PERCENT AUTO 0.4 % (0.1-1.3); EOSINOPHILS ABSOLUTE AUTO 0.18 K/uL (0.00-0.40); EOSINOPHILS PERCENT AUTO 1.9 % (0.0-5.4); HEMATOCRIT 35.7 % (34.3-46.0); HEMOGLOBIN 12.2 g/dL (11.2-15.5); IMMATURE GRAN PERCENT AUTO 0.2 % (0.0-0.7); LYMPHOCYTES ABSOLUTE AUTO 1.92 K/uL (0.8-3.3); LYMPHOCYTES PERCENT AUTO 20.8 % (11.4-47.7); MEAN CORPUSCULAR HEMOGLOBIN 31.3 pg (31.6-35.5); MEAN CORPUSCULAR HGB CONC 34.2 g/dL (31.6-35.5); MEAN CORPUSCULAR VOLUME 91.5 fL (81.4-99.0); MONOCYTES PERCENT AUTO 5.4 % (3.3-12.6); NEUTROPHILS ABSOLUTE AUTO 6.58 K/uL (1.0-7.6); NEUTROPHILS PERCENT AUTO 71.3 % (40.0-78.1); PLATELET COUNT,PLT 202 K/uL (130-375); WHITE BLOOD CELL COUNT,WBC 9.2 K/uL (3.2-11.0)
[2023-05-06 20:52] LABS: IMMATURE GRAN ABSOLUTE AUTO 0.02 K/uL (0.00-0.23)
[2023-05-06 21:06] LABS: ANION GAP 9.5 mmol/L (5.0-14.0); CALCIUM 8.7 mg/dL (8.5-10.1); CREATININE 0.7 mg/dL (0.6-1.0); EST CRCL DRUG DOSING (CG) 90.55 mL/min; POTASSIUM,K 3.5 mmol/L (3.6-5.2)
== END 2023-05-06 21:31 | disposition home or self-care (01) ==
LOC: JP.ED 18:50
DX: S29.012A Strain of muscle and tendon of back wall of thorax, initial encounter (principal); F17.210 Nicotine dependence, cigarettes, uncomplicated; Z91.040 Latex allergy status
CPT/HCPCS: 36415; 71046; 71046-26; 80048; 85025; 99283

== ENCOUNTER 2023-05-28 23:14 | Emergency (ER) | payer MEDICAID ==
[2023-05-28 23:29] VITALS: BP 147/109; PULSE 98
[2023-05-29] MEDS ORDERED: Sodium Chloride 0.9% 10 ML Syringe FLUSH PRN (00:26)
[2023-05-29] MEDS ORDERED: fentaNYL 50 MCG/ML SDV IVPUSH ONE (00:26)
[2023-05-29] MEDS ORDERED: HYDROmorphone 0.5 MG/0.5 ML Syringe IVPUSH ONE ×2 (00:41→01:38)
[2023-05-29] MEDS ORDERED: Ondansetron 4 MG/2 ML SDV IVPUSH PRN (00:41)
[2023-05-29] MEDS ORDERED: Lidocaine 1% 10 ML MDV INJECT ONE (01:16)
[2023-05-29] MEDS ORDERED: Naloxone 0.4 MG/ML SDV IVPUSH PRN (01:38)
[2023-05-29] MEDS ORDERED: Propofol 200 MG/20 ML SDV ONE (03:04)
[2023-05-29] MEDS ORDERED: Acetaminophen 325 MG Tab PO STA (03:28)
== END 2023-05-29 04:01 | disposition home or self-care (01) ==
LOC: JP.ED 23:14
DX: S31.41XA Laceration without foreign body of vagina and vulva, initial encounter (principal); F17.210 Nicotine dependence, cigarettes, uncomplicated; Z91.040 Latex allergy status; W22.8XXA Striking against or struck by other objects, initial encounter
CPT/HCPCS: 36415; 57200; 85018; 96374; 96375; 96376; 99284; A9270; J1170; J2405; J2704; J3490

== ENCOUNTER 2023-12-13 10:44 | Emergency (ER) | payer MEDICAID ==
[2023-12-13 10:59] VITALS: BP 103/70; PULSE 77
== END 2023-12-13 11:49 | disposition home or self-care (01) ==
LOC: JP.ED 10:44
DX: Z34.92 Encounter for supervision of normal pregnancy, unspecified, second trimester (principal); Z3A.17 17 weeks gestation of pregnancy; Z79.899 Other long term (current) drug therapy; Z90.49 Acquired absence of other specified parts of digestive tract
CPT/HCPCS: 99283

== ENCOUNTER 2024-12-08 00:11 | Emergency (ER) | payer MEDICAID ==
[2024-12-08 00:34] VITALS: PULSE 105
[2024-12-08] MEDS: Acetaminophen 500 MG Tab PO ONE (00:53)
[2024-12-08 01:57] VITALS: BP 123/72
== END 2024-12-08 01:58 | disposition home or self-care (01) ==
LOC: JP.ED 00:11
DX: R07.89 Other chest pain (principal); Z90.49 Acquired absence of other specified parts of digestive tract; Z79.899 Other long term (current) drug therapy; Z91.040 Latex allergy status
CPT/HCPCS: 71046; 99284; A9270